=== PATIENT | male | born 1995 | race Hispanic/Latino ===

== ENCOUNTER 2017-04-17 10:00 | Outpatient (RCR) | payer OTHER | END 2017-04-22 | LOC: PT 10:00 | PROVIDERS: ATTEND Neurological Surgery | DX: M51.16 Intervertebral disc disorders with radiculopathy, lumbar region (principal); M53.86 Other specified dorsopathies, lumbar region; M62.81 Muscle weakness (generalized) ==

== ENCOUNTER 2017-05-21 09:00 | Outpatient (RCR) | payer OTHER | END 2017-05-23 | LOC: PT 09:00 | PROVIDERS: ATTEND Neurological Surgery | DX: M51.16 Intervertebral disc disorders with radiculopathy, lumbar region (principal) ==

== ENCOUNTER → 2018-04-22 | Outpatient (RCR) | payer OTHER | LOC: PT 04-03 14:07 | PROVIDERS: ATTEND Neurological Surgery | DX: M47.896 Other spondylosis, lumbar region (principal); M62.81 Muscle weakness (generalized) ==

== ENCOUNTER 2018-05-21 13:00 | Outpatient (RCR) | payer OTHER | END 2018-05-23 | LOC: PT 13:00 | PROVIDERS: ATTEND Neurological Surgery | DX: M47.896 Other spondylosis, lumbar region (principal); M62.81 Muscle weakness (generalized) ==